=== PATIENT | female | born 1955 | race Caucasian/White ===

== ENCOUNTER 2021-06-28 18:56 | Emergency (ER) | payer MEDICARE, OTHER ==
[~2021-06-28] VITALS: Ht 165.1 cm; Wt 96.0 kg
[2021-06-28] MEDS ORDERED: CHOL25TA4 PO (19:38)
[2021-06-28] MEDS ORDERED: GUAIF10 PO (19:38)
[2021-06-28] MEDS ORDERED: CYAN100T45 PO (19:38)
[2021-06-28] MEDS ORDERED: EMPA25TA PO (19:38)
[2021-06-28] MEDS ORDERED: METF-1211 PO (19:38)
[2021-06-28] MEDS ORDERED: ZOLP-280 PO (19:38)
[2021-06-28] MEDS ORDERED: FAMO20 PO (19:38)
[2021-06-28] MEDS ORDERED: ATOR40TA28 PO (19:38)
[2021-06-28] MEDS ORDERED: METO25 PO (19:38)
[2021-06-28] MEDS ORDERED: VENL50TA44 PO (19:38)
[2021-06-28] MEDS ORDERED: FIBERT PO (19:38)
[2021-06-28] MEDS ORDERED: GLIP5 PO (19:38)
[2021-06-28] MEDS ORDERED: BACL10TA PO (19:41)
[2021-06-28] MEDS ORDERED: TraMADol HCL 50 MG TABLET PO ONE (20:00)
[2021-06-28] MEDS ORDERED: GABAPENTIN 400 MG CAPSULE PO ONE (20:00)
[2021-06-28 21:00] VITALS: BP 103/64
== END 2021-06-28 21:05 | disposition home or self-care (01) ==
LOC: EMS 18:56
DX: S82.001A Unspecified fracture of right patella, initial encounter for closed fracture (principal); E11.9 Type 2 diabetes mellitus without complications; I10 Essential (primary) hypertension; Z79.84 Long term (current) use of oral hypoglycemic drugs; Z88.6 Allergy status to analgesic agent; Z88.1 Allergy status to other antibiotic agents; W01.0XXA Fall on same level from slipping, tripping and stumbling without subsequent striking against object, initial encounter; Y93.01 Activity, walking, marching and hiking; Y92.89 Other specified places as the place of occurrence of the external cause; Y99.8 Other external cause status
CPT/HCPCS: 29505; 99283

== ENCOUNTER 2023-09-02 23:06 | Emergency (ER) | payer MEDICARE, OTHER ==
[~2023-09-02] VITALS: Ht 170.2 cm; Wt 95.5 kg
[~2023-09-02 23:06] MED LIST: ATOR40TA28 PO; BACL10TA PO; CHOL25TA4 PO; CYAN100T45 PO; EMPA25TA3 PO; FAMO20 PO; FIBERT PO; GLIP5TAB16 PO; GUAIF10 PO; METF-1211 PO; METO25 PO; VENL50TA44 PO; ZOLP-280 PO
[2023-09-02 23:14] VITALS: TEMP 98.3
[2023-09-02] MEDS: KETOROLAC TROMETHAMINE 60 MG/2 ML VIAL IM ONE (23:33)
[2023-09-02] MEDS: HYDROCODONE/ACETAMINOPHEN 5-325 MG TABLET PO ONE (23:34)
[2023-09-03 01:12] VITALS: BP 140/72; PULSE 73; RESP 18
[2023-09-03] MEDS ORDERED: HYDR-4062 PO (01:47)
== END 2023-09-03 02:09 | disposition home or self-care (01) ==
LOC: EMS 23:07
DX: S83.92XA Sprain of unspecified site of left knee, initial encounter (principal); M17.12 Unilateral primary osteoarthritis, left knee; E11.9 Type 2 diabetes mellitus without complications; I10 Essential (primary) hypertension; Z88.1 Allergy status to other antibiotic agents; Z88.2 Allergy status to sulfonamides; Z88.6 Allergy status to analgesic agent; Z88.8 Allergy status to other drugs, medicaments and biological substances; W19.XXXA Unspecified fall, initial encounter; Y93.89 Activity, other specified; Y92.89 Other specified places as the place of occurrence of the external cause; Y99.8 Other external cause status
CPT/HCPCS: 99284; 29505; 73503; 73562; 96372; J1885